=== PATIENT | female | born 1990 | race Caucasian/White ===

== ENCOUNTER 2024-01-16 22:00 | Emergency (ER) | payer OTHER, SELFPAY ==
--- NOTE | ~2024-01-16 | CT_ITS ---
EXAMINATION: CT CERVICAL SPINE WITHOUT CONTRAST; UNENHANCED CT OF THE HEAD. CLINICAL INFORMATION: Status post fall. COMPARISON: CT head 08/24/2015 report TECHNIQUE: Routine unenhanced CT of the head with multiple coronal and sagittal reformatted images; routine unenhanced CT of the cervical spine with multiple coronal and sagittal reformatted images. This CT examination was performed using dose optimization techniques as appropriate, variously including the following: *Automated exposure control *Adjustment of mA and/or kV according to patient size (this includes techniques or standardized protocols for targeted exams where dose is matched to indication/reason for exam; i.e. extremities or head) *Use of iterative reconstruction technique DLP: 1468 mGy-cm FINDINGS: CT head: No intracranial hemorrhage, tumors or acute infarcts identified. The ventricles and sulci are normal in size and configuration. Focal subependymal hypodensity adjacent to the body of the right lateral ventricle is present may represent an area of chronic encephalomalacia.. No extracranial soft tissue inflammatory changes noted. Bilateral craniotomies are visualized. No significant opacification of the visualized paranasal sinuses, mastoid air cells and middle ear cavities. Hyperostosis frontalis interna. CT cervical spine: No fractures or acute appearing subluxations noted. The visualized lung apices are clear. Minimal chronic appearing ossification/calcification noted focally along the posterior aspect of C4. CT/CT head/brain wo IV con IMPRESSION: CT head: *No acute intracranial abnormalities. *Chronic bilateral craniotomies. CT cervical spine: *No acute abnormalities. Electronically signed by: Meliton Mosley MD 01/17/2024 01:53 AM EDT
--- NOTE | ~2024-01-16 | XR_ITS ---
EXAMINATION: XR SACRUM AND COCCYX CLINICAL INFORMATION: Fall. COMPARISON: None available. TECHNIQUE: 2 views of the sacrum and 2 views of the coccyx were obtained. FINDINGS: Visualized sacrum appears intact. No sacroiliac joint diastases. Normal appearance of the visualized femurs. Scattered pelvic phleboliths. No sacral or coccygeal focal subluxations. No fractures noted of the coccyx. XR/XR sacrum coccyx min 2V IMPRESSION: No acute abnormalities. Electronically signed by: Meliton Mosley MD 01/17/2024 02:10 AM EDT
--- NOTE | ~2024-01-16 | CT_ITS ---
EXAMINATION: CT CERVICAL SPINE WITHOUT CONTRAST; UNENHANCED CT OF THE HEAD. CLINICAL INFORMATION: Status post fall. COMPARISON: CT head 08/24/2015 report TECHNIQUE: Routine unenhanced CT of the head with multiple coronal and sagittal reformatted images; routine unenhanced CT of the cervical spine with multiple coronal and sagittal reformatted images. This CT examination was performed using dose optimization techniques as appropriate, variously including the following: *Automated exposure control *Adjustment of mA and/or kV according to patient size (this includes techniques or standardized protocols for targeted exams where dose is matched to indication/reason for exam; i.e. extremities or head) *Use of iterative reconstruction technique DLP: 1468 mGy-cm FINDINGS: CT head: No intracranial hemorrhage, tumors or acute infarcts identified. The ventricles and sulci are normal in size and configuration. Focal subependymal hypodensity adjacent to the body of the right lateral ventricle is present may represent an area of chronic encephalomalacia.. No extracranial soft tissue inflammatory changes noted. Bilateral craniotomies are visualized. No significant opacification of the visualized paranasal sinuses, mastoid air cells and middle ear cavities. Hyperostosis frontalis interna. CT cervical spine: No fractures or acute appearing subluxations noted. The visualized lung apices are clear. Minimal chronic appearing ossification/calcification noted focally along the posterior aspect of C4. CT/CT cervical spine wo IV con IMPRESSION: CT head: *No acute intracranial abnormalities. *Chronic bilateral craniotomies. CT cervical spine: *No acute abnormalities. Electronically signed by: Meliton Mosley MD 01/17/2024 01:53 AM EDT
[2024-01-16 22:13] LABS: Glucose, Whole Blood 174 mg/dL (60-115)
[2024-01-16 23:03] VITALS: BMI 44.4
[2024-01-16 23:54] VITALS: BP 145/68; PULSE 93; RESP 14; O2SAT 98
--- NOTE | 2024-01-17 00:31 | ED_ITS ---
HPI - Fall General Chief Complaint: Fall Stated Complaint: FALL LOC Time Seen by Provider: 01/16/24 23:52 Source: patient Mode of arrival: ambulatory Limitations: no limitations History of Present Illness ED Provider: sammy PAUL Narrative: Patient with history of [place] disease status post surgery apparently was doing hayride fell off from the tractor about 4 ft high landed on her sacral area then hit her head transient loss of consciousness were 2- 3 minutes back to normal complaining of pain in sacral area not on any anticoagulation no seizures no vomiting Related Data Allergies Allergy/AdvReac Type Severity Reaction Status Date / Time SEASONAL ALLERGIES Allergy Unknown UNKNOWN Uncoded 01/16/24 23:03 Review of Systems Review of Systems: Yes all other systems are reviewed and are negative [facility] Social History Social History Advance Directives: No Advance Directives Information Provided: No Physical Exam Vital Signs: Vital Signs: Last Vital Signs Pulse 93 01/16/24 23:54 Resp 14 01/16/24 23:54 BP 145/68 H 01/16/24 23:54 Pulse Ox 98 01/16/24 23:54 O2 Del Method Room Air 01/16/24 23:54 BMI result Body Mass Index 44.4 Appearance: Alert. Oriented X3. No acute distress. Eyes: PERRLA, No Nystagmus ENT: Pharynx normal. Oral Mucosa moist atraumatic normocephalic Neck: Normal inspection. Neck supple. CVS: Normal heart rate and rhythm. Pulses normal. Respiratory: No respiratory distress. Equal air entry bilateral, no wheezing/rales/rhonchi Abdomen: Soft and nontender. Bowel sounds are present, no mass palpable, no CVA tenderness Skin: Skin warm and dry. Normal skin color. Normal skin turgor. Extremities: No lower extremity edema. No calf tenderness back: Tenderness in sacral area no lumbar spine tenderness Neuro: Oriented X 3. No motor deficit. No sensory deficit.No cerebellar signs , cranial nerves II-XII intact Medical Decision Making Medical Decision Making [facility] Narrative: Patient is status post mechanical fall CT scan head C-spine and x-ray of the coccyx negative for fracture likely pain in the coccygeal area from contusion will discharge patient home advised take Tylenol/ibuprofen Lab Data [facility] Lab Attestation statement: I reviewed the patient's lab results. Labs: Lab Results 01/16/24 Range/Units 22:09 POC Glucose 174 H (60-115) mg/dL Independent Interpretation I performed an independent interpretation of an: Plain X-Ray and CT Scan Interpretation: Negative for acute Radiology Impression Discussion of test interpretation with radiology: I have reviewed the radiologist's reading. Radiologist Impression: Negative Discharge Plan Discharge Clinical Impression: Coccygeal contusion, Fall Patient Disposition: Home, Self-Care Instructions: Acute Low Back Pain (ED) Additional Instructions: Your pain in lower back is likely from contusion to the coccyx Use donut tube when you sit Take Tylenol/Motrin for pain Follow with PCP if any concerns Print Language: Telugu
[2024-01-17 02:27] VITALS: BP 141/66; PULSE 106; RESP 14; TEMP 36.6; O2SAT 98
[2024-01-17 03:01] VITALS: BP 141/66; PULSE 106; RESP 14; TEMP 36.6; O2SAT 98
== END 2024-01-17 02:30 | disposition home or self-care (01) ==
PROVIDERS: Emergency Provider Internal Medicine; PCP Internal Medicine
DX: S30.0XXA Contusion of lower back and pelvis, initial encounter (principal); V84.6XXA Passenger of special agricultural vehicle injured in nontraffic accident, initial encounter; Y93.89 Activity, other specified; Y92.73 Farm field as the place of occurrence of the external cause; Y99.9 Unspecified external cause status
CPT/HCPCS: 70450; 72125; 72220; 82947; 99284